=== PATIENT | male | born 1960 ===

== ENCOUNTER 2024-03-11 10:56 | Emergency (ER) | payer BC ==
[2024-03-11] MEDS: Dexamethasone 4 MG/ML SDV IVPUSH ONE (11:17)
[2024-03-11] MEDS: Sodium Chloride 0.9% 10 ML Syringe FLUSH PRN (11:17)
== END 2024-03-11 12:29 | disposition home or self-care (01) ==
LOC: DL.ED 10:56
DX: T78.3XXA Angioneurotic edema, initial encounter (principal)
CPT/HCPCS: 96374; 99282; J1100; J3490